=== PATIENT | male | born 1950 | race African-American/Black ===

== ENCOUNTER → 2017-04-16 | Outpatient (CLI) | payer MEDICARE | END | disposition home or self-care (01) | LOC: CDC 14:49 | DX: M25.512 Pain in left shoulder (principal); R94.31 Abnormal electrocardiogram [ECG] [EKG]; M75.42 Impingement syndrome of left shoulder | CPT/HCPCS: 93000 ==

== ENCOUNTER 2017-06-19 10:51 | Day surgery (SDC) | payer OTHER ==
[~2017-06-19] VITALS: Ht 177.8 cm; Wt 87.7 kg
[~2017-06-19 10:51] MED LIST: COREG25 M1 PO; COZAAR100 MG PO; GLUCOPHAGE850 MG PO; LIPITOR10 MG PO; LO-DOSE ASPIRIN81 M2 PO; MICROZIDE12.5 M1 PO
[2017-06-19 11:38] VITALS: BP 163/86
[2017-06-19 16:16] VITALS: BP 174/84
[2017-06-19 17:16] VITALS: BP 147/84
== END 2017-06-19 17:41 | disposition home or self-care (01) ==
LOC: SDC 10:51
PROVIDERS: Orthopaedic Surgery Sports Medicine
DX: M75.112 Incomplete rotator cuff tear or rupture of left shoulder, not specified as traumatic (principal); M19.012 Primary osteoarthritis, left shoulder; M75.22 Bicipital tendinitis, left shoulder; M75.52 Bursitis of left shoulder; E11.9 Type 2 diabetes mellitus without complications; Z79.84 Long term (current) use of oral hypoglycemic drugs; Z79.82 Long term (current) use of aspirin
CPT/HCPCS: 82948; C1713; J0171; J0330; J0690; J1100; J2250; J2405; J2795; J3010